=== PATIENT | female | born 1960 | race American Indian/Alaskan Native ===

== ENCOUNTER 2017-04-04 12:08 | Outpatient (CLI) | payer MEDICARE, OTHER ==
--- NOTE | 2017-04-04 13:04 | Ultrasound Report ---
ULTRASOUND SOFT TISSUE HEAD AND NECK History: Lump in neck, neck mass. Findings: Targeted grayscale ultrasound with color Doppler interrogation was performed in the left upper chest and neck area. The images demonstrate normal appearing soft tissues and vascular structures. There is no evidence for cyst, mass, adenopathy or fluid collection. Impression: No abnormality detected. The technologist felt the patient might be palpating a dilated venous structure.
== END 2017-04-04 12:09 | disposition home or self-care (01) ==
LOC: US 12:08
PROVIDERS: ATTEND Internal Medicine
DX: R22.1 Localized swelling, mass and lump, neck (principal); I10 Essential (primary) hypertension; F32.9 Major depressive disorder, single episode, unspecified; Z87.891 Personal history of nicotine dependence
CPT/HCPCS: 76536

== ENCOUNTER 2020-07-27 20:07 | Emergency (ER) | payer MEDICAID, OTHER | END 2020-07-27 21:45 | disposition left against medical advice (07) | LOC: ED 20:07 | DX: R07.89 Other chest pain (principal); R06.02 Shortness of breath; Z53.21 Procedure and treatment not carried out due to patient leaving prior to being seen by health care provider ==